=== PATIENT | female | born 1975 | race Caucasian/White ===

== ENCOUNTER → 2017-10-15 | Outpatient (CLI) | payer OTHER ==
[~2017-10-15] MED LIST: ACET-1256 PO; CALC500C3 PO; CYCL10TA6 PO; GABA-113 PO; IBUP-103 PO; MULT-506 PO
--- NOTE | 2017-10-15 18:37 | DIAGNOSTIC IMAGING REPORT ---
LUMBAR SPINE W/O CONTRAST CLINICAL HISTORY: 41 years-old Female with LUMBAGO, LUMBAR RADICULOPATHY, LOW BACK PAIN. Acute low back pain COMPARISON: None. TECHNIQUE: Multiplanar, multi sequence MRI of the lumbar spine was performed without intravenous contrast. FINDINGS: Mild levoscoliosis of the lumbar spine measures 14 degrees from T12-L3. Conus medullaris terminates at the T12 level. Signal within the imaged thoracic spinal cord appears normal. 1 mm lipoma of the filum terminale as seen on image 13 series 8. Cauda equina are unremarkable. No acute abnormality identified within the imaged intra-abdominal, intrapelvic or paraspinal tissues. No focal bone marrow edema, acute fracture or subluxation. Moderate intervertebral disc space narrowing at L4-L5 redemonstrated. T12-L1: Mild posterior spondylitic spurring without central canal or foraminal narrowing. L1-L2: No central canal or neural foraminal stenosis. L2-L3: No central canal or neural foraminal stenosis. Mild ligamentum flavum thickening. L3-L4: No central canal or neural foraminal stenosis. Mild ligament of flavum thickening and mild facet arthrosis. L4-L5: Small circumferential annular disc bulge with small left paracentral and left foraminal disc protrusion is again seen along with annular fissure on image 8 series 4. These findings cause flattening of the ventral thecal sac with mild to moderate left foraminal narrowing which has not significantly changed. The right foramen and central canal are generally patent. Mild ligament flavum thickening and mild facet arthrosis also noted. L5-S1: Mild facet arthrosis and ligament of flavum thickening without significant central canal or foraminal narrowing. Unchanged. IMPRESSION: 1. Moderate intervertebral disc space narrowing at L4-L5 redemonstrated with small circumferential annular disc bulge, annular fissure and small left paracentral/left foraminal disc protrusion which causes mild to moderate left foraminal narrowing without significant right foraminal or central canal stenosis. 2. Mild multilevel facet arthrosis and ligamentum flavum thickening without significant central canal or foraminal narrowing. 3. Tiny lipoma of the filum terminale. 4. Mild levoscoliosis. The above report was generated using voice recognition software. It may contain grammatical, syntax or spelling errors. Electronically signed by: Kunal Caballero M.D. 10/15/2017 6:36 PM Dictated Date/Time: 10/15/2017 6:26 PM
== END | disposition home or self-care (01) ==
LOC: C.MRI 16:49
PROVIDERS: ATTEND Physician Assistant
DX: M51.16 Intervertebral disc disorders with radiculopathy, lumbar region (principal); M48.061 Spinal stenosis, lumbar region without neurogenic claudication

== ENCOUNTER → 2017-10-15 | Outpatient (CLI) | payer OTHER ==
[~2017-10-15] MED LIST changes: +GADAVIST IV PRN
--- NOTE | 2017-10-15 20:31 | DIAGNOSTIC IMAGING REPORT ---
CERVICAL SPINE COMBO HISTORY: 41 years-old Female M54.2 Chronic neck painR20.0 [id number] Chronic mixed headache COMPARISON: Cervical spine MRI 10/26/2015 TECHNIQUE: Multiplanar multisequence MRI of the cervical spine were obtained both with and without the use of 10 mL Gadavist FINDINGS: The large [id number] rail signal mechanic localizer images demonstrate no gross abnormality. The imaged posterior fossa structures, brainstem and cervical spinal cord appear unremarkable. There is no abnormal enhancement identified. No focal bone marrow edema, soft tissue edema, acute fracture or subluxation. C2-C3: Mild spondylitic spurring with small posterior disc bulge. No central canal or foraminal narrowing. C3-C4: Mild intervertebral disc space narrowing with uncovertebral spurring and small circumferential annular disc bulge with mild left foraminal narrowing. Flattening of the ventral thecal sac without significant central canal narrowing. There is mild bilateral foraminal stenosis. C4-C5: Mild intervertebral disc space narrowing with uncovertebral spurring and small posterior disc bulge. Additionally, there is a superimposed left lateral recess/foraminal disc protrusion which causes mild left lateral recess and mild left foraminal narrowing. The central canal and right foramen are patent. C5-C6: Mild uncovertebral spurring with posterior disc bulge favoring the left lateral recess/left foramen causing mild left lateral recess and mild left foraminal narrowing. The right foramen and central canal are generally patent. C6-C7: Uncovertebral spurring with small posterior disc bulge favoring the left lateral recess/left foramen results in mild to moderate left foraminal narrowing. The right foramen and central canal are patent. C7-T1: Mild left-sided facet arthrosis. No central canal or foraminal narrowing. Tiny posterior disc bulge. Small left lateral recess/foraminal disc protrusion at T1-T2 as seen on the sagittal images alone. IMPRESSION: 1. Mostly mild discogenic degenerative changes throughout the cervical spine as above without high-grade central canal or significant foraminal narrowing. 2. At C6-C7, uncovertebral spurring with small posterior disc bulge favoring the left lateral recess/left foramen results in mild to moderate left foraminal narrowing. 3. No abnormal enhancement. The above report was generated using voice recognition software. It may contain grammatical, syntax or spelling errors. Electronically signed by: Kunal Caballero M.D. 10/15/2017 8:30 PM Dictated Date/Time: 10/15/2017 7:04 PM
== END | disposition home or self-care (01) ==
LOC: C.MRI 16:51
PROVIDERS: ATTEND Psychiatry & Neurology Neurology
DX: M46.02 Spinal enthesopathy, cervical region (principal); M50.20 Other cervical disc displacement, unspecified cervical region; G44.89 Other headache syndrome; R20.0 Anesthesia of skin

== ENCOUNTER → 2017-10-23 | Outpatient (CLI) | payer OTHER ==
[~2017-10-23] MED LIST changes: -GADAVIST IV PRN
[2017-10-23 12:16] LABS: BASO % 0.4 %; BASO ABS # 0.02 K/uL (0-0.2); EOS ABS # 0.05 K/uL (0-0.5); HEMATOCRIT 39.9 % (37-47); HEMOGLOBIN 13.3 g/dL (12.0-16.0); IG# 0.01 K/uL (0.00-0.02); LYMPH ABS # 1.39 K/uL (1.2-3.4); MEAN CELL VOLUME 90.1 fL (80-100); MEAN CORPUSCULAR HGB CONC 33.3 g/dl (32-36); MEAN PLATELET VOLUME 11.9 fL (7.4-10.4); MONO ABS # 0.26 K/uL (0.11-0.59); NEUT % 66.4 %; NEUT ABS # 3.42 K/uL (1.4-6.5); PLATELET COUNT 218 K/uL (130-400); RED CELL DISTRIBUTION WIDTH CV 13.4 % (11.5-14.5); RED CELL DISTRIBUTION WIDTH SD 44.2 fL (36.4-46.3); WHITE BLOOD COUNT 5.15 K/uL (4.8-10.8)
[2017-10-23 12:31] LABS: ALBUMIN 4.1 gm/dl (3.4-5.0); ALT/SGPT 43 U/L (12-78); AST/SGOT 16 U/L (15-37); BLOOD UREA NITROGEN 17 mg/dl (7-18); CALCIUM 9.3 mg/dl (8.5-10.1); CARBON DIOXIDE 24 mmol/L (21-32); CREATININE 0.77 mg/dl (0.60-1.20); GLUCOSE 98 mg/dl (70-99); POTASSIUM 3.7 mmol/L (3.5-5.1); SODIUM 140 mmol/L (136-145)
[2017-10-23 12:34] LABS: ALKALINE PHOSPHATASE 78 U/L (45-117); TOTAL PROTEIN 7.9 gm/dl (6.4-8.2)
[2017-10-26 12:33] LABS: ANA SCREEN TC 249X NEGATIVE (NEGATIVE); ANTI-SS-A <1.0 NEG AI (<1.0 NEG); ANTI-SS-B <1.0 NEG AI (<1.0 NEG); VITAMIN B6** TC 926 21.5 ng/mL (2.1-21.7)
== END | disposition home or self-care (01) ==
LOC: C.LABBFT 09:21
PROVIDERS: ATTEND Psychiatry & Neurology Neurology
DX: R20.0 Anesthesia of skin (principal)

== ENCOUNTER → 2018-02-20 | Outpatient (CLI) | payer OTHER ==
[~2018-02-20] MED LIST changes: +BUTACAP7 PO; -CYCL10TA6 PO; +DICL50TA3 PO; +GADAVIST IV PRN; +METH-445 PO; +NARATRIPTAN PO; +TOPI1CAP25 PO
--- NOTE | 2018-02-20 10:55 | DIAGNOSTIC IMAGING REPORT ---
FLUOROSCOPICALLY GUIDED RIGHT SHOULDER ARTHROGRAM PRIOR TO MRI CLINICAL HISTORY: Right shoulder pain. COMPARISON STUDY: Right shoulder radiograph May 05, 2016. Fluoroscopy time: 40 seconds. FINDINGS: 1 fluoroscopic image was obtained. The procedure, risks and benefits were discussed with the patient. Informed written consent was obtained. The procedure was performed by Dr. Sousa following a timeout. Skin overlying the right glenohumeral joint was prepped and draped in sterile fashion and local anesthesia was achieved with 1% lidocaine. Under intermittent fluoroscopic guidance, a 2 1/2 inch 22-gauge needle was directed into the right glenohumeral joint. Positioning within the joint space was confirmed with injection of a small amount of contrast. At this time, 13 cc of a mixture of 0.05 cc of gadolinium, 10 cc of Optiray 300 cc and 10 cc of normal saline was injected. A possible full-thickness rotator cuff tear was noted. This can be assessed on MRI. The patient tolerated the procedure well and no immediate complications were evident. IMPRESSION: Successful fluoroscopically guided right arthrogram prior to MRI. Electronically signed by: Samuel Sousa M.D. 02/20/2018 10:54 AM Dictated Date/Time: 02/20/2018 10:52 AM
--- NOTE | 2018-02-20 12:21 | DIAGNOSTIC IMAGING REPORT ---
POST ARTHROGRAM MRI THE RIGHT SHOULDER CLINICAL HISTORY: R SHOULDER PAIN COMPARISON STUDY: Commensurate radiographic study dated 05/05/2016 FINDINGS: Following a gadolinium arthrogram, imaging was performed in the axial, sagittal, and coronal planes. Selected sequences were repeated due to motion artifact. There are no suspicious areas of marrow replacement. The bicipital tendon appears normal. No labral tears are visualized. There is contrast within the subacromial bursa indicative of a full-thickness rotator cuff tear. There is thickening of the supra spinous tendon indicative of tendinopathy. There is a very thin tear with the distal supraspinatus tendon which must be full-thickness as evidenced by the contrast within the subacromial bursa IMPRESSION: 1. Supraspinatus tendinopathy and tiny full-thickness supraspinatus tear. No evidence of tendinous retraction. 2. Normal bicipital tendon 3. No labral tears identified Electronically signed by: Todd Barroso M.D. 02/20/2018 12:20 PM Dictated Date/Time: 02/20/2018 12:14 PM
== END | disposition home or self-care (01) ==
LOC: C.MRIBC 09:45
PROVIDERS: ATTEND Physical Medicine & Rehabilitation Sports Medicine
DX: M25.511 Pain in right shoulder (principal); M75.81 Other shoulder lesions, right shoulder; M75.101 Unspecified rotator cuff tear or rupture of right shoulder, not specified as traumatic

== ENCOUNTER → 2018-02-22 | Outpatient (CLI) | payer OTHER ==
[~2018-02-22] MED LIST changes: +CYCL10TA6 PO; -GADAVIST IV PRN; +MELO7.5T5 PO; +NARA1TAB PO; +TOPI100T20 PO
== END | disposition home or self-care (01) ==
LOC: C.RDSM 13:27
PROVIDERS: ATTEND Physical Medicine & Rehabilitation Sports Medicine
DX: M77.11 Lateral epicondylitis, right elbow (principal); Z88.1 Allergy status to other antibiotic agents; Z88.8 Allergy status to other drugs, medicaments and biological substances